=== PATIENT | female | born 1975 | race Caucasian/White ===

== ENCOUNTER 2016-07-15 09:06 | Emergency (ER) | payer OTHER ==
[~2016-07-15] VITALS: Ht 170.2 cm; Wt 110.0 kg
[~2016-07-15 09:06] MED LIST: AMOXICILLIN875 MG OR; AUGMENTIN875TAB PO; FLONASE NASAL50 MCG; KEFLEX500 MG OR; LAMICTAL150 MG OR; LORTAB 5 OR; NO HOME MEDS; ZITHROMAX500 MG PO; ZPAK PO
[2016-07-15] MEDS ORDERED: PANTOPRAZOLE SO40 M1 PO (09:24)
[2016-07-15] MEDS ORDERED: BIOTIN MAXI10000 MCG PO (09:25)
[2016-07-15] MEDS ORDERED: MELATONIN10 MG PO (09:26)
[2016-07-15 10:04] LABS: HEMATOCRIT 43.2 % (37.0-47.0); HEMOGLOBIN 14.9 g/dl (12.0-16.0); IMMATURE GRANULOCYTES 0.2 % (0.0-1.0); MEAN CELL VOLUME 94.7 fL CALC (80.0-100.0); MEAN CORPUSCULAR HGB 32.7 pG CALC (26.0-32.0); MEAN CORPUSCULAR HGB CONC 34.5 g/L CALC (32.0-36.0); NEUT# 8.14 thou/uL (2.00-7.15); RED BLOOD COUNT 4.56 mill/uL (4.20-5.60); RED CELL DISTRI WIDTH 11.9 % (11.5-15.5)
[2016-07-15 10:05] LABS: URINE BILIRUBIN - DIPSTICK NEGATIVE (NEGATIVE); URINE BLOOD DIPSTICK TRACE-INTACT (NEGATIVE); URINE CLARITY CLEAR; URINE COLOR YELLOW; URINE GLUCOSE - DIPSTICK NEGATIVE (NEGATIVE); URINE KETONE NEGATIVE (NEGATIVE); URINE LEUK ESTERASE NEGATIVE (NEGATIVE); URINE NITRITE - DIPSTICK NEGATIVE (Negative); URINE PROTEIN - DIPSTICK NEGATIVE (NEG-TRACE); URINE UROBILINOGEN - DIPSTICK 0.2 E.U./dL (0.2)
[2016-07-15 10:17] LABS: ALKALINE PHOSPHATASE 101 u/l (38-126); AMYLASE 37 u/l (30-110); ANION GAP 14 (6-22 (CALC)); BILIRUBIN, TOTAL 0.7 mg/dL (0.0-1.4); BUN 11 mg/dL (7-17); BUN/CREATININE RATIO 15 (12-20 (CALC)); CALCIUM 8.8 mg/dL (8.4-10.2); CARBON DIOXIDE 24 mmol/l (22-30); CHLORIDE 106 mmol/l (95-108); CREATININE 0.7 mg/dL (0.5-1.0); GFR > 60 ML/MIN (>=60 (CALC)); GFR FOR AFR.AMER. > 60 ML/MIN (>=60 (CALC)); GLUCOSE 99 mg/dL (65-105); LIPASE 27 u/l (23-300); MAGNESIUM 1.6 mg/dL (1.6-2.3); POTASSIUM 3.7 mmol/l (3.5-5.1); SGOT/AST 29 u/l (14-36); SGPT/ALT 36 u/l (9-52); SODIUM 139 mmol/l (137-146); TOTAL PROTEIN 7.1 g/dL (6.3-8.2)
[2016-07-15 10:48] LABS: INFLUENZA A NONE DETECTED (NONE DETECT); INFLUENZA B NONE DETECTED (NONE DETECT)
[2016-07-15 13:42] LABS: C. DIFFICILE TOXIN A&B NEGATIVE (NEGATIVE)
[2016-07-15] MEDS ORDERED: ZOFRAN ODT4 MG PO (13:48)
[2016-07-15] MEDS ORDERED: IMODIUM2 MG PO (13:48)
[2016-07-15 14:23] VITALS: BP 109/66
== END 2016-07-15 14:24 | disposition home or self-care (01) | DRG 392 ==
LOC: ED 09:06
PROVIDERS: Emergency Medicine
DX: K52.9 Noninfective gastroenteritis and colitis, unspecified (principal)

== ENCOUNTER 2017-07-10 11:36 | Emergency (ER) | payer OTHER ==
[~2017-07-10] VITALS: Ht 170.2 cm; Wt 121.0 kg
[~2017-07-10 11:36] MED LIST changes: +BIOTIN MAXI10000 MCG PO; +IMODIUM2 MG PO; +MELATONIN10 MG PO; +PANTOPRAZOLE SO40 M1 PO; +ZOFRAN ODT4 MG PO
[2017-07-10] MEDS ORDERED: ASPERCREME LIDOCA41 TOP (13:43)
[2017-07-10] MEDS ORDERED: MOTRIN400 MG PO (13:43)
[2017-07-10] MEDS ORDERED: CYCLOBENZAPR5 MG PO (13:43)
[2017-07-10 13:45] VITALS: BP 122/68
== END 2017-07-10 13:55 | disposition home or self-care (01) | DRG 552 ==
LOC: ED 11:36
DX: M62.830 Muscle spasm of back (principal)

== ENCOUNTER 2018-07-15 20:28 | Emergency (ER) | payer BC ==
[~2018-07-15] VITALS: Ht 170.2 cm; Wt 119.0 kg
[~2018-07-15 20:28] MED LIST changes: +ASPERCREME LIDOCA41 TOP; +CYCLOBENZAPR5 MG PO; +MOTRIN400 MG PO
[2018-07-15 21:31] LABS: IMMATURE GRANULOCYTES 0.3 % (0.0-5.0); MEAN CELL VOLUME 94.7 fL CALC (80.0-100.0); MEAN CORPUSCULAR HGB 30.8 pG CALC (26.0-32.0); MEAN CORPUSCULAR HGB CONC 32.6 g/L CALC (32.0-36.0); NEUT# 6.64 thou/uL (2.00-7.15); RED BLOOD COUNT 4.54 mill/uL (4.20-5.60); RED CELL DISTRI WIDTH 12.8 % (11.5-15.5)
[2018-07-15 21:48] LABS: ALBUMIN 4.2 g/dL (3.2-5.0); ALKALINE PHOSPHATASE 85 u/l (38-126); ANION GAP 13 (6-22 (CALC)); BILIRUBIN, TOTAL 0.4 mg/dL (0.0-1.4); BUN 15 mg/dL (7-17); BUN/CREATININE RATIO 19 (12-20 (CALC)); CARBON DIOXIDE 25 mmol/l (22-30); CHLORIDE 107 mmol/l (95-108); CREATININE 0.8 mg/dL (0.5-1.0); GFR > 60 ML/MIN (>=60 (CALC)); GFR FOR AFR.AMER. > 60 ML/MIN (>=60 (CALC)); POTASSIUM 3.7 mmol/l (3.5-5.1); SGOT/AST 19 u/l (14-36); SODIUM 141 mmol/l (137-146); TOTAL PROTEIN 6.7 g/dL (6.3-8.2)
[2018-07-15 22:17] LABS: URINE BILIRUBIN - DIPSTICK NEGATIVE (NEGATIVE); URINE BLOOD DIPSTICK TRACE-INTACT (NEGATIVE); URINE COLOR YELLOW; URINE GLUCOSE - DIPSTICK NEGATIVE (NEGATIVE); URINE KETONE NEGATIVE (NEGATIVE); URINE LEUK ESTERASE NEGATIVE (NEGATIVE); URINE NITRITE - DIPSTICK NEGATIVE (Negative); URINE PH 5.5 (4.5-8.0); URINE PROTEIN - DIPSTICK NEGATIVE (NEG-TRACE); URINE SPECIFIC GRAVITY 1.015; URINE UROBILINOGEN - DIPSTICK 0.2 E.U./dL (0.2)
[2018-07-15 22:20] LABS: BARBITURATES NEGATIVE (NEGATIVE); COCAINE NEGATIVE (NEGATIVE); METHADONE NEGATIVE (NEGATIVE); OXCYCODONE NEGATIVE (NEGATIVE); TETRAHYDROCANNABIONOL NEGATIVE (NEGATIVE); TRICYLIC ANTIDEPRESSANTS NEGATIVE (NEGATIVE)
[2018-07-15] MEDS ORDERED: ANTIVERT PO (22:34)
[2018-07-15 23:00] VITALS: BP 120/76
== END 2018-07-15 23:00 | disposition home or self-care (01) | DRG 149 ==
LOC: ED 20:28
PROVIDERS: Emergency Medicine
DX: R42 Dizziness and giddiness (principal); J02.9 Acute pharyngitis, unspecified

== ENCOUNTER 2019-10-22 16:17 | Emergency (ER) | payer BC ==
[~2019-10-22] VITALS: Ht 170.2 cm; Wt 119.0 kg
[~2019-10-22 16:17] MED LIST changes: +ANTIVERT PO
[2019-10-22 19:24] VITALS: BP 112/70
--- NOTE | 2019-10-25 09:17 | NUR ---
Notified patient of positive Covid results. Patient denies any SOB, cough, fever or other symptoms. Patient states she "feels great." Advised patient to quarantine until contacted by the [facility] with further instructions. Advised patient to return to ED with any Covid symptoms or other urgent needs. Patient verbalized understanding.
== END 2019-10-22 19:21 | disposition home or self-care (01) | DRG 179 ==
LOC: ED 16:17
DX: U07.1 COVID-19 (principal)

== ENCOUNTER 2021-10-01 14:26 | Emergency (ER) | payer BC ==
[~2021-10-01] VITALS: Ht 170.2 cm; Wt 117.9 kg
[2021-10-01] VITALS (8 sets, daily range): BP systolic 107–132; BP diastolic 64–75
[2021-10-01 15:41] LABS: HEMATOCRIT 42.2 % (37.0-47.0); IMMATURE GRANULOCYTES 0.2 % (0.0-5.0); MEAN CELL VOLUME 98.4 fL CALC (80.0-100.0); MEAN CORPUSCULAR HGB 32.6 pG CALC (26.0-32.0); MEAN CORPUSCULAR HGB CONC 33.2 g/dL CAL (32.0-36.0); NEUT# 10.19 thou/uL (2.00-7.15); RED BLOOD COUNT 4.29 mill/uL (4.20-5.60); RED CELL DISTRI WIDTH 11.7 % (11.5-15.5)
[2021-10-01 15:59] LABS: ALBUMIN 3.8 g/dL (3.2-5.0); ALKALINE PHOSPHATASE 70 u/l (38-126); ANION GAP 8 (6-22 (CALC)); BILIRUBIN, TOTAL 0.3 mg/dL (0.0-1.4); BUN 11 mg/dL (7-17); BUN/CREATININE RATIO 15 (12-20 (CALC)); CARBON DIOXIDE 24 mmol/l (22-30); CHLORIDE 106 mmol/l (95-108); CREATININE 0.7 mg/dL (0.5-1.0); GFR FOR AFR.AMER. > 60 ML/MIN (>=60 (CALC)); GFR OTHER RACES > 60 ML/MIN (>=60 (CALC)); POTASSIUM 4.1 mmol/l (3.5-5.1); SGOT/AST 20 u/l (14-36); SODIUM 135 mmol/l (137-146); TOTAL PROTEIN 6.9 g/dL (6.3-8.2)
[2021-10-01] MEDS ORDERED: ROBITUSSIN AC10 ML PO (17:33)
== END 2021-10-01 17:50 | disposition home or self-care (01) | DRG 179 ==
LOC: ED 14:26
PROVIDERS: Nurse Practitioner
DX: U07.1 COVID-19 (principal); R05.9 Cough, unspecified; R50.9 Fever, unspecified; J02.9 Acute pharyngitis, unspecified; M79.10 Myalgia, unspecified site; R19.7 Diarrhea, unspecified

== ENCOUNTER 2023-10-01 11:18 | Day surgery (SDC) | payer BC ==
[~2023-10-01] VITALS: Ht 170.2 cm; Wt 117.9 kg
[~2023-10-01 11:18] MED LIST changes: +BUPROPION HCL150 MG PO; +MELATONIN3 M1 PO; +OMEPRAZOLE XX; +ROBITUSSIN AC10 ML PO; +TAM75CAP PO; +TRAZODONE XX
[2023-10-01] MEDS ORDERED: ONDANSETRON HCl 4 MG/2 ML SDV ONE (11:27)
[2023-10-01] MEDS ORDERED: FAMOTIDINE 10MG/ML 2ML SDV IV ONE (11:27)
[2023-10-01] MEDS ORDERED: LACTATED RINGER'S 1,000 ML IV ONE (11:27)
[2023-10-01 14:30] VITALS: BP 121/78
[2023-10-01] MEDS ORDERED: GLYCOPYRROLATE 0.2 MG/ML IV ONE (15:01)
[2023-10-01] MEDS ORDERED: PROPOFOL 500 MG/50 ML VIAL IV ONE (15:01)
[2023-10-01] MEDS ORDERED: LIDOCAINE HCL 2% 2ML SDV IV ONE (15:01)
[2023-10-01] MEDS ORDERED: PROPOFOL 200 MG/20 ML VIAL IV ONE (15:01)
== END 2023-10-01 14:45 | disposition home or self-care (01) | DRG 951 ==
LOC: ORM 11:18
PROVIDERS: ATTEND Internal Medicine Gastroenterology
PROC: 0DBH8ZX Excision of Cecum, Via Natural or Artificial Opening Endoscopic, Diagnostic (ICD-10-PCS; principal; 2023-10-01)
PROC: 0DBP8ZX Excision of Rectum, Via Natural or Artificial Opening Endoscopic, Diagnostic (ICD-10-PCS; 2023-10-01)
PROC: 0DB48ZX Excision of Esophagogastric Junction, Via Natural or Artificial Opening Endoscopic, Diagnostic (ICD-10-PCS; 2023-10-01)
PROC: 0DB78ZX Excision of Stomach, Pylorus, Via Natural or Artificial Opening Endoscopic, Diagnostic (ICD-10-PCS; 2023-10-01)
DX: Z12.11 Encounter for screening for malignant neoplasm of colon (principal); K63.5 Polyp of colon; K57.30 Diverticulosis of large intestine without perforation or abscess without bleeding; K62.89 Other specified diseases of anus and rectum; K64.8 Other hemorrhoids; K22.70 Barrett's esophagus without dysplasia; K31.89 Other diseases of stomach and duodenum; K29.70 Gastritis, unspecified, without bleeding; K21.9 Gastro-esophageal reflux disease without esophagitis; Z79.899 Other long term (current) drug therapy